=== PATIENT | female | born 1955 | race Caucasian/White ===

== ENCOUNTER 2019-06-23 09:29 | Outpatient (CLI) | payer BC ==
[2019-06-23 12:00] LABS: #Basophils 0.1 thou/uL (0.0-0.2); #Eosinphils 0.1 thou/uL (0.0-0.7); #Lymphocytes 1.9 thou/uL (1.20-3.40); #Monocytes 0.4 thou/uL (0.11-0.59); #Neutrophils 4.2 thou/uL (1.40-6.50); %Basophils 0.8 % (0.0-1.0); %Eosinophils 1.5 % (0.0-10.0); %Lymphocytes 29.1 % (21.0-51.0); %Monocytes 5.9 % (0.0-10.0); %Neutrophils 62.6 % (42.0-75.0); Hemoglobin 14.3 g/dL (12.0-16.0); Mean Corpuscular HGB CONC 33.3 g/dL (32.0-36.0); Mean Corpuscular Volume 93.2 fL (78.0-98.0); Mean Platelet Volume 6.6 fL (7.4-10.4); Platelet Count 222 thou/uL (130-400); RBC Distribution Width 11.8 % (11.5-14.5); Red Blood Cell (RBC) Count 4.61 mill/uL (4.20-5.40); White Blood Cell (WBC) Count 6.7 thou/uL (4.8-10.8)
[2019-06-23 12:21] LABS: Anion Gap 10 mmol/L (10-20); BUN (Urea Nitrogen) 10 mg/dL (9.8-20.1); Calc. Creatinine Clearance 0 mL/min (70-130); Calcium 9.6 mg/dL (7.8-10.44); Carbon Dioxide 28 mmol/L (23-31); Chloride 105 mmol/L (98-107); Estimated GFR-MDRD 81; Glucose 85 mg/dL (80-115); Potassium 3.7 mmol/L (3.5-5.1); Sodium 139 mmol/L (136-145)
--- NOTE | 2019-06-23 15:25 | EKG ---
Test Reason : Blood Pressure : / mmHG Vent. Rate : 065 BPM Atrial Rate : 065 BPM P-R Int : 158 ms QRS Dur : 092 ms QT Int : 422 ms P-R-T Axes : 033 049 061 degrees QTc Int : 438 ms Normal sinus rhythm Normal ECG When compared with ECG of 23-JUN-2016 11:18, Minimal criteria for Anterior infarct are no longer Present Confirmed by DR. Ghazal GAXIOLA ([id number]) on 06/23/2019 3:25:27 PM Referred By: IERO Confirmed By:DR. Ghazal GAXIOLA
== END 2019-06-23 09:30 | disposition home or self-care (01) ==
LOC: LABBT 09:29
PROVIDERS: ATTEND Orthopaedic Surgery
DX: Z01.818 Encounter for other preprocedural examination (principal); K82.8 Other specified diseases of gallbladder
CPT/HCPCS: 80048; 85025; 93005; 93010

== ENCOUNTER 2019-06-25 05:54 | Day surgery (SDC) | payer BC ==
[2019-06-23 11:47] VITALS: BMI 28.7
[2019-06-25] MEDS ORDERED: Midazolam HCl 2 mg/2 ml Vial ONE (06:28)
[2019-06-25] MEDS ORDERED: PROPOFOL 20 ML ONE (06:28)
[2019-06-25] MEDS ORDERED: Fentanyl 100 MCG/2 ML VIAL ONE (06:28)
[2019-06-25] MEDS ORDERED: Ondansetron PF 4 MG/2 ML Vial ONE ×2 (06:31→12:07)
[2019-06-25] MEDS ORDERED: Scopolamine 1.5 mg/72 hour Patch ONE (06:31)
[2019-06-25] MEDS ORDERED: Lidocaine 2% w/Epinephrine 1:200K 20 ML VIAL ONE (12:04)
[2019-06-25] MEDS ORDERED: Bupivacaine HCl 0.5%/Epinephrine 1:200,000/PF 30 ml Vial ONE (12:04)
[2019-06-25] MEDS ORDERED: PROPOFOL 200 MG/20 ML VIAL ONE (12:07)
[2019-06-25] MEDS ORDERED: Dexamethasone 20 MG/5 ML VIAL ONE (12:07)
[2019-06-25] MEDS ORDERED: Ketorolac Tromethamine 30 MG/ML VIAL ONE (12:07)
--- NOTE | 2019-06-26 14:13 | OP ---
DATE OF PROCEDURE: 06/25/2019 PREOPERATIVE DIAGNOSIS: Right knee medial meniscus tear. POSTOPERATIVE DIAGNOSIS: Right knee cartilaginous loose body that measured approximately 7 mm in width and over a centimeter in length off medial femoral condyle. PROCEDURE PERFORMED: Knee arthroscopy with removal of loose body. DIRECTOR PUBLIC: None. ESTIMATED BLOOD LOSS: Minimal. COMPLICATIONS: None. ANESTHESIA: She had a general anesthetic as well as a local knee block. DISPOSITION: She went to recovery room in stable condition. INDICATIONS: This is a 63-year-old female, who comes in complaining of knee catching and swelling. At this time, she has failed nonoperative treatment and wished to have surgery. DESCRIPTION OF PROCEDURE: After all appropriate consent forms were explained and signed, she was taken back to the operating room and at this time was given general anesthetic. Once the level of anesthesia was appropriate. A tourniquet was placed onto the right leg. Leg was placed in arthroscopic leg persaud. The limb was prepped and draped in standard surgical fashion. Limb was exsanguinated. The tourniquet was taken to 300 mmHg. Inferolateral portal was established and the scope was placed into the knee joint. Needle localization technique was then used to make a medial working portal. Diagnostic arthroscopy commenced in the notch. ACL and PCL were probed and found to be intact. There was an impinging osteophyte anteriorly. This was taken down with the shaver. The medial compartment was entered and other than some scuffing on the medial femoral condyle from the impinging osteophyte on the tibia. The cartilage on the femur and the tibia overall in good condition. Posterior horn of the medial meniscus was probed and felt to be intact throughout. 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 Gutters were swept through. No loose bodies were noted, but there was some significant synovitis, which was removed. The suprapatellar pouch was evaluated. There was a cartilaginous loose body, which was over a centimeter in length and approximately 7 mm in width. This was removed with a grasper. This was later found to be off edge of the medial femoral condyle and the area where cartilage attempted on already had viable cartilaginous growth covering this area. At this time, we went through the knee one more time making sure there were no more loose bodies, there were none, and at this time, the scope was removed, knee was drained, and Portals were closed with simple nylon stitch. Bulky sterile dressing was applied. Tourniquet was let down. Toes pinked up nicely. The patient was awakened. She was taken to the recovery room in stable condition. All counts correct at the end of the case. She did receive preoperative IV antibiotic. Job ID: [id number]
== END 2019-06-25 08:58 | disposition home or self-care (01) ==
LOC: SDC 05:54
PROVIDERS: ATTEND Orthopaedic Surgery
PROC: 0SCC4ZZ Extirpation of Matter from Right Knee Joint, Percutaneous Endoscopic Approach (ICD-10-PCS; principal; 2019-06-25)
PROC: 0SBC4ZZ Excision of Right Knee Joint, Percutaneous Endoscopic Approach (ICD-10-PCS; principal; 2019-06-25)
DX: M23.41 Loose body in knee, right knee (principal); M94.261 Chondromalacia, right knee; M65.88 Other synovitis and tenosynovitis, other site; M25.761 Osteophyte, right knee; E78.00 Pure hypercholesterolemia, unspecified; I48.91 Unspecified atrial fibrillation; J30.9 Allergic rhinitis, unspecified; Z88.5 Allergy status to narcotic agent; Z91.018 Allergy to other foods; Z91.09 Other allergy status, other than to drugs and biological substances; Z98.890 Other specified postprocedural states
CPT/HCPCS: J0670; J0690; J1100; J1885; J2250; J2405; J2704; J3010